=== PATIENT | female | born 1985 | race Caucasian/White ===

== ENCOUNTER → 2019-03-28 | Outpatient (CLI) | payer BC ==
[2019-03-28 14:25] LABS: BASO % 0.4 % (0.0-1.0); HEMATOCRIT 37.9 % (36.0-47.0); HEMOGLOBIN 13.1 g/dl (12.0-15.5); MEAN CORPUSCULAR HGB CONC 34.6 g/dl (32.0-36.5); MEAN CORPUSCULAR VOLUME 89.8 fl (80.0-96.0); MONO # 0.9 10^3/uL (0.0-0.8); MONO % 9.6 % (0.0-5.0); NEUTROPHILS % 67.8 % (36.0-66.0); PLATELET COUNT, AUTOMATED 220 10^3/uL (150-450); RED BLOOD COUNT 4.22 10^6/uL (4.00-5.40); WHITE BLOOD COUNT 8.9 10^3/uL (4.0-10.0)
[2019-03-28 15:20] LABS: HEPATITIS C VIRUS ABY INDEX < 0.0 INDEX (<0.8); HIV 1&2 SCREEN CENTAUR NEGATIVE (NEGATIVE); RUBELLA IgG QUALITATIVE IMMUNE (IMMUNE)
[2019-03-28 15:47] LABS: CHLAMYDIA DNA AMPLIFICATION NEGATIVE (NEGATIVE); GC DNA AMPLIFICATION NEGATIVE (NEGATIVE)
== END ==
LOC: M SMT 10:18
PROVIDERS: ATTEND Advanced Practice Midwife
DX: Z34.81 Encounter for supervision of other normal pregnancy, first trimester (principal); Z3A.00 Weeks of gestation of pregnancy not specified

== ENCOUNTER → 2019-04-09 | Outpatient (CLI) | payer BC | LOC: M SMT 10:32 | PROVIDERS: ATTEND Advanced Practice Midwife | DX: Z34.81 Encounter for supervision of other normal pregnancy, first trimester (principal); Z36.89 Encounter for other specified antenatal screening ==

== ENCOUNTER → 2019-04-23 | Outpatient (REF) | payer BC | LOC: M LAB REF 18:30 | PROVIDERS: ATTEND Advanced Practice Midwife | DX: Z34.81 Encounter for supervision of other normal pregnancy, first trimester (principal); Z3A.00 Weeks of gestation of pregnancy not specified ==

== ENCOUNTER → 2019-07-31 | Outpatient (CLI) | payer BC ==
[2019-07-31 18:30] LABS: MEAN CORPUSCULAR HEMOGLOBIN 31.9 pg (27.0-33.0); MEAN CORPUSCULAR HGB CONC 33.3 g/dl (32.0-36.5); MEAN CORPUSCULAR VOLUME 95.7 fl (80.0-96.0); PLATELET COUNT, AUTOMATED 178 10^3/uL (150-450); RED BLOOD COUNT 3.76 10^6/uL (4.00-5.40); WHITE BLOOD COUNT 12.7 10^3/uL (4.0-10.0)
== END ==
LOC: M SMT 13:06
PROVIDERS: ATTEND Advanced Practice Midwife
DX: Z36.89 Encounter for other specified antenatal screening (principal)

== ENCOUNTER → 2019-09-11 | Outpatient (CLI) | payer BC ==
--- NOTE | 2019-09-11 10:17 | REP ---
Clinical: Growth evaluation Comparison: None . Findings: Examination demonstrates a single live intrauterine in cephalic presentation. motion is identified by technologist. Placenta is noted anterior and grade I I without evidence for placenta previa or abruption. Amniotic fluid volume is normal. Cervix measures 4.2 cm in length and appears closed. No evidence for nuchal cord. Note is made of funic presentation of the umbilical cord lying upon the closed internal os. Gestational age by LMP 32 weeks 3 days with CHARLES 11/03/2019 . Gestational age by current measurements 33 weeks 5 days with CHARLES 10/25/2019 . FHR equals 146 beats per minute. BPD 8.2 cm 32 weeks 6 days HC 30.2 cm 33 weeks 4 days AC 32.0 cm 36 weeks 0 days FL 6.5 cm 33 weeks 4 days HL 5.6 cm 32 weeks 4 days HC/AC ratio 0.94 Estimated weight 2500 grams ( 93rd percentile). Amniotic fluid index: 10.8 cm (8.5 - 24.3) Umbilical cord SD ratio: 2.39 (2.30 - 3.30). Anatomical assessment demonstrates normal structures including cranium, choroid plexus, cavum, cerebellum/posterior fossa, facial features, lungs, four-chamber heart/left ventricular outflow tract, diaphragm, stomach, three-vessel cord, kidneys/bladder, spine, and lower extremities. Small bilateral hydroceles noted. Current examination demonstrates limited evaluation of the right cardiac ventricular outflow tract, cord insertion, and upper extremities due to age and crowding. Impression: 1. Single live intrauterine in cephalic presentation demonstrating appropriate interval growth. 2. The umbilical cord is seen presenting at the internal os without prolapse. 3. Small hydroceles noted in the scrotal sac may warrant evaluation for hernia. Electronically Signed by Fabricio Cuevas MD 09/11/2019 10:09 A
== END ==
LOC: M RAD 08:34
PROVIDERS: ATTEND Advanced Practice Midwife
DX: Z34.83 Encounter for supervision of other normal pregnancy, third trimester (principal); Z3A.33 33 weeks gestation of pregnancy

== ENCOUNTER → 2019-09-27 | Outpatient (REF) | payer BC | LOC: M SFHCWAGY 10:12 | PROVIDERS: ATTEND Specialist | DX: Z36.85 Encounter for antenatal screening for Streptococcus B (principal) ==

== ENCOUNTER → 2019-10-16 | Outpatient (CLI) | payer BC | LOC: M PLALAB 08:56 | PROVIDERS: ATTEND Advanced Practice Midwife | DX: Z36.89 Encounter for other specified antenatal screening (principal) ==

== ENCOUNTER → 2019-10-22 | Outpatient (CLI) | payer BC ==
[~2019-10-22] MED LIST: DOCU100C16 PO; IBUP80TA PO; PERCOCET PO; PRENTAB9 PO
--- NOTE | 2019-10-23 02:55 | REP ---
Clinical: Anatomical evaluation. Comparison: 10/22/2019 . Findings: Examination demonstrates a single live intrauterine in cephalic presentation. motion is identified by technologist. Placenta is noted anterior and grade I I without evidence for placenta previa or abruption. Amniotic fluid volume is normal. The cervix measures 3.6 cm, but the internal os appears marginally patent and fluid extends into the cervical canal. Multiple images demonstrate possible chorionic separation as well as the placental cord adjacent to the cervix and the head. Gestational age by LMP 38 weeks 2 days with CHARLES 11/03/2019 . Gestational age by current measurements 37 weeks 0 days with CHARLES 11/12/2019 . FHR equals 152 beats per minute. Estimated weight 3767 grams ( 77th percentile). Amniotic fluid index: 8.0 cm (7.3 - 23.6). Impression: 1. Single live intrauterine in cephalic presentation demonstrating appropriate interval growth. 2. Findings related to the cervix including marginally patent internal os with fluid extending into the endocervical canal and suggestions for funic cord.
== END ==
LOC: M WHC 08:29
PROVIDERS: ATTEND Advanced Practice Midwife
DX: Z36.89 Encounter for other specified antenatal screening (principal); Z3A.37 37 weeks gestation of pregnancy

== ENCOUNTER 2019-10-26 09:40 | Inpatient (IN) | payer BC ==
[~2019-10-26] VITALS: Ht 160 cm; Wt 82.1 kg
[2019-10-26] VITALS (8 sets, daily range): BP systolic 114–153; BP diastolic 61–87
[2019-10-26] MEDS ORDERED: PRENTAB9 PO (10:04)
[2019-10-26] MEDS ORDERED: LR 1,000 ML IV SCH ×2 (10:36→14:03)
[2019-10-26] MEDS ORDERED: LACTATED RINGER'S 1000 ML IV STA (10:36)
--- NOTE | 2019-10-26 10:54 | HPEPDOC ---
Obstetrical History & Physical General Date of Admission 10/26/2019 History of Present Illness Chief Complaint: Contractions, term, LOF, term Information Provided By: Patient Age: 34 : 2 Term: 0 Pre-term: 0 Abortions: 1 Livin Care Care: Good Care Dating Final EDC: Nov 03, 2019 Final EDC by: LMP EGA at Admission: 38 (+6) Antepartum Course Height (inches): 63 Pre- weight (lbs.): 145 Admission Weight (lbs.): 178 Past Medical History Past Obstetrical History : Past Obstetrical History: [employer] History: Theraputic Past Medical History Medical History Narcolepsy, migraine, moles, acne Surgical History: Hernia repair (umbilical) Family History Significant Family History: Cancer (breast), Hypertension, Lung disease Social History Marital Status: Family situation: Spouse/partner home Psychosocial History: No pertinent psych hx * Smoker: non-smoker Alcohol: Denies Drugs: denies Abuse Violence Screening Have you been hit/kicked/slapp: No Have you been sexually assault: No Imunizations Tdap status: current Allergies Coded Allergies: No Known Allergies (Unverified , 10/26/19) Medications Scheduled No.137/Iron/Folic Acd ( Vitamin Tablet) 1 Each Tablet, 1 TAB PO DAILY Physical Examination Physical Examination GENERAL: Alert and oriented times three. BREAST: . ABDOMEN: Gravid and non-tender to touch. FETUS: Is vertex (VTX) by sterile vaginal examination (SVE), fetus is vertex (VTX) by Sen. HEART RATE: Regular rate and rhythm. LUNGS: Clear to auscultation (CTA). EXTREMITIES: No edema. No clonus. Deep tendon reflexes (DTRs) + 2. Vital Signs/I&O Vital Signs Date Time Temp Pulse Resp B/P (MAP) Pulse Ox O2 Delivery O2 Flow Rate FiO2 10/26/19 10:02 98.1 70 18 134/87 (103) 97 Room Air Pertinent Laboratoy Data Blood Type: A+ RBC Antibody Screen: Negative HIV: Negative Hepatitis B: Negative Hepatitis C: Negative Rapid Plasma Reagin: Nonreactive Rubella: Immune Chlamydia/Gonorrhea: Negative Group B Streptococcus: Negative Quad Screen Test: Declined Glucose Tolerance Test: 113 Diag/Inter Therapy Panorama low risk male Anatomy Ultrasound Ultrasound Date: Jun 19, 2019 Placenta Location: Anterior Normal Anatomy: Yes (mild caliectasis) Placenta Previa: No Estimated Weight (grams): 436 Other Ultrasounds 03/28/19 dating [facility] 9w3d 09/2019 - possible funic cord presentation, cephalic 10/23/2019 growth sono, 77%. possible funic cord again seen Steroid Therapy Steroid Therapy: No Vaginal Examination Dilation: 1cm Effacement: 90% Station: -3 Cervical Consistency: Soft Cervical Position: Posterior Presentation: Cephalic presentation (small palpable loop of cord posterior) Assessment Heart Rate (FHR): 145 Variability: Moderate Accelerations: Positive Decelerations: Variable Tocometer Contractions: Yes Frequency: irregular, every 3-7 min. (5-6 minutes) Duration: greater than 60 seconds Strength: palpated as moderate Multi-drug resistant Organism: No history of MDRO Assessment/Plan Assessment Nannette is a 34-year-old (G)2 para (P)0-0-1-0 at 38+6 weeks by 9-week ultrasound. Presents to Labor and Delivery (L&D) with reports of SROM moderate clear fluid 0345 with onset irregular UC thereafter. Initially noted Cat II tracing with variable decels as low as 90's with UC and slow recovery to baseline. Reviewed pt status with Dr Campos who will come to evaluate due to sono showing possible funic cord and SVE with small palpable loop posterior of presen ting part. Plan Admit and orient per consult Dr Campos Informatics Pharmacist and consent. Diet: NPO. Group B Streptococcus (GBS) negative. Labs and intravenous (IV) per unit protocol. Counseled on Pitocin and induction of labor (IOL). Reviewed with patient and partner possible indication for based on Cat II tracing remote from delivery. After exam Cat I tracing is predominant Lactated Ringers (LR): Bolus 500 mL, then at 125 mL/hr. Will consult physician for mode of delivery Keeley Medrano CNM Oct 26, 2019 10:54
[2019-10-26 11:18] LABS: HEMATOCRIT 40.9 % (36.0-47.0); HEMOGLOBIN 13.8 g/dl (12.0-15.5); MEAN CORPUSCULAR HEMOGLOBIN 30.9 pg (27.0-33.0); MEAN CORPUSCULAR HGB CONC 33.7 g/dl (32.0-36.5); MEAN CORPUSCULAR VOLUME 91.5 fl (80.0-96.0); PLATELET COUNT, AUTOMATED 133 10^3/uL (150-450); RED BLOOD COUNT 4.47 10^6/uL (4.00-5.40); WHITE BLOOD COUNT 11.4 10^3/uL (4.0-10.0)
[2019-10-26] MEDS ORDERED: MORPHINE PRES-FREE INJ 10 MG/10 ML VIAL (J2274) As Ordered ONE (12:22)
[2019-10-26] MEDS ORDERED: OXYTOCIN INJ 10 UNITS/ML VIAL (J2590) As Ordered ONE ×2 (12:24→13:29)
[2019-10-26] MEDS ORDERED: dexameTHASONE 4 MG/ML 1ML VIAL (J1100) As Ordered ONE (12:28)
[2019-10-26] MEDS ORDERED: ONDANSETRON 4MG/2ML VIAL (J2405) As Ordered ONE (12:28)
[2019-10-26] MEDS ORDERED: PHENYLephrine HCL 500 MCG/5 ML (100MCG/ML) SYRINGE (J2370) As Ordered ONE ×2 (12:28→13:30)
[2019-10-26] MEDS ORDERED: METOCLOPRAMIDE INJ 10MG/2ML VIAL (J2765) As Ordered ONE (12:35)
[2019-10-26] MEDS ORDERED: BICITRA 30ML SOLN UDC PO ONE (13:00)
[2019-10-26] MEDS ORDERED: ceFAZolin SOD 2 GM in IV 1 EA IV ONE (13:00)
[2019-10-26] MEDS ORDERED: AZITHROMYCIN INJ 500 MG, VIAL MATE ADAPTER 1 EACH in D5W 250 ML IV ONE (13:00)
[2019-10-26] MEDS ORDERED: OXYTOCIN DRIP 30 UNITS in IV 1 EA IV SCH (14:03)
[2019-10-26] MEDS ORDERED: DOCU100C16 PO (14:14)
[2019-10-26] MEDS ORDERED: IBUP80TA PO (14:14)
[2019-10-26] MEDS ORDERED: PERCOCET PO (14:14)
[2019-10-26] MEDS ORDERED: RHOGAM 300 MCG (1500 IU) INJ (J2790) IM SCH (14:15)
[2019-10-26] MEDS ORDERED: ONDANSETRON 4 MG TAB (S0181) PO PRN (14:15)
[2019-10-26] MEDS ORDERED: MEASLES,MUMPS,RUBELLA VACCINE INJ (MMR-II) (90707) SC SCH (14:15)
[2019-10-26] MEDS ORDERED: PERCOCET 5MG/325MG TAB PO PRN ×2 (14:15)
[2019-10-26] MEDS ORDERED: PROMETHAZINE 25 MG TAB PO PRN (14:15)
[2019-10-26] MEDS ORDERED: ACETAMINOPHEN 500 MG TAB PO PRN (14:15)
[2019-10-26] MEDS ORDERED: OXYTOCIN 30 UNITS IN 0.9% NaCl 500ML IV BAG (J2590) As Ordered ONE (14:28)
[2019-10-26] MEDS ORDERED: KETOROLAC 30 MG/ML VIAL (J1885) IV PRN (14:30)
[2019-10-26] MEDS ORDERED: fentaNYL 100 MCG/2 ML INJECTION (J3010) IV PRN (14:30)
[2019-10-26] MEDS ORDERED: ONDANSETRON 4MG/2ML VIAL (J2405) IV PRN ×2 (14:30→15:00)
[2019-10-26] MEDS ORDERED: NALBUPHINE HCL 10 MG/ML AMP (J2300) IV PRN ×2 (14:30→15:00)
[2019-10-26] MEDS ORDERED: KETOROLAC 30 MG/ML VIAL (J1885) As Ordered ONE (14:35)
[2019-10-26] MEDS ORDERED: NALOXONE INJ 0.4 MG/1 ML VIAL (J2310) IV PRN ×2 (15:00)
[2019-10-26] MEDS ORDERED: METOCLOPRAMIDE INJ 10MG/2ML VIAL (J2765) IV PRN (15:00)
[2019-10-26] MEDS ORDERED: diphenhydrAMINE INJ 50MG/ML VIAL (J1200) IV PRN (15:00)
[2019-10-26] MEDS: KETOROLAC 30 MG/ML VIAL (J1885) IV SCH (20:34)
[2019-10-26] MEDS: DOCUSATE SODIUM 100 MG CAP PO SCH (20:34)
[2019-10-27 02:00] VITALS: BP 120/69
[2019-10-27] MEDS: KETOROLAC 30 MG/ML VIAL (J1885) IV SCH ×2 (03:20→08:54)
[2019-10-27 06:00] VITALS: BP 109/66
[2019-10-27 06:53] LABS: HEMATOCRIT 30.1 % (36.0-47.0); MEAN CORPUSCULAR HEMOGLOBIN 32.1 pg (27.0-33.0); MEAN CORPUSCULAR HGB CONC 34.9 g/dl (32.0-36.5); PLATELET COUNT, AUTOMATED 110 10^3/uL (150-450); RED BLOOD COUNT 3.27 10^6/uL (4.00-5.40); WHITE BLOOD COUNT 16.8 10^3/uL (4.0-10.0)
--- NOTE | 2019-10-27 06:56 | IPNPDOC ---
Text Note Date of Service The patient was seen on 10/27/19. NOTE Postop #1 patient denies complaints. tolerating oral fluid intake as well as food. nipples intact, establishing . abdominal dressing dry and intact. fundus firm at umbilicus after voiding; voiding without difficulty; pain controlled. plan for discharge tomorrow. CBC pending. Vital signs stable. YANNICK Patel agree with the above. VS,Fishbone, I+O VS, Fishbone, I+O Laboratory Tests 10/26/19 11:05 Vital Signs Date Time Temp Pulse Resp B/P (MAP) Pulse Ox O2 Delivery O2 Flow Rate FiO2 10/27/19 06:00 97.3 68 20 109/66 (80) 97 Room Air I&O- Last 24 Hours up to 6 AM 10/27/19 06:00 Intake Total 1505 ml Output Total 2225 ml Balance -720 ml Keeley Medrano CNM Oct 27, 2019 06:56
[2019-10-27 06:59] LABS: HEMOGLOBIN 10.5 g/dl (12.0-15.5)
[2019-10-27] MEDS: PRENATAL VITAMINS CHEWABLE TABLET PO SCH (08:53)
[2019-10-27] MEDS: DOCUSATE SODIUM 100 MG CAP PO SCH ×2 (08:53→21:19)
[2019-10-27] MEDS ORDERED: INFLUENZA QUADRIVALENT PF VACCINE 0.5ML SYRINGE (90686) IM ONE (09:00)
[2019-10-27 09:58] VITALS: BP 114/61
[2019-10-27 14:09] VITALS: BP 122/79
[2019-10-27] MEDS: IBUPROFEN 800 MG TAB PO SCH (17:39)
[2019-10-27 17:59] VITALS: BP 127/74
[2019-10-27 22:00] VITALS: BP 117/62
[2019-10-28] MEDS: IBUPROFEN 800 MG TAB PO SCH ×2 (01:45→09:00)
[2019-10-28 05:58] VITALS: BP 118/73
[2019-10-28] MEDS: PRENATAL VITAMINS CHEWABLE TABLET PO SCH (09:00)
[2019-10-28] MEDS: DOCUSATE SODIUM 100 MG CAP PO SCH (09:00)
== END 2019-10-28 12:05 | disposition home or self-care (01) | DRG 540 ==
LOC: M LDO 09:40 → M LDI 10:40 → M OBS 15:26
PROVIDERS: ADMIT Advanced Practice Midwife; ATTEND Obstetrics & Gynecology
PROC: 10D00Z1 Extraction of Products of Conception, Low, Open Approach (ICD-10-PCS; principal; 2019-10-26 13:00)
DX: O76 Abnormality in fetal heart rate and rhythm complicating labor and delivery (principal); Z3A.38 38 weeks gestation of pregnancy; O43.123 Velamentous insertion of umbilical cord, third trimester; Z37.0 Single live birth

== ENCOUNTER → 2021-07-31 | Outpatient (CLI) | payer BC | LOC: M LABSMTC 11:21 | PROVIDERS: ATTEND Family Medicine | DX: Z20.822 Contact with and (suspected) exposure to COVID-19 (principal) | CPT/HCPCS: C9803; U0003 ==

== ENCOUNTER → 2022-07-27 | Outpatient (REF) | payer BC | LOC: M SFHCWAGY 10:14 | PROVIDERS: ATTEND Obstetrics & Gynecology | DX: Z12.4 Encounter for screening for malignant neoplasm of cervix (principal) | CPT/HCPCS: 87624; G0123 ==

== ENCOUNTER → 2023-01-25 | Outpatient (CLI) | payer BC ==
[~2023-01-25] MED LIST changes: +ISOVUE-370 76% 100ML VIAL As Ordered ONE
== END ==
LOC: M RADPRO 11:43
PROVIDERS: ATTEND Obstetrics & Gynecology
DX: N97.9 Female infertility, unspecified (principal); Z31.9 Encounter for procreative management, unspecified
CPT/HCPCS: 58340; 74740; Q9967

== ENCOUNTER 2023-03-23 10:04 | Day surgery (SDC) | payer BC ==
[~2023-03-23] VITALS: Ht 160 cm; Wt 72.1 kg
[~2023-03-23 10:04] MED LIST changes: -ISOVUE-370 76% 100ML VIAL As Ordered ONE; +KETOROLAC 60MG 2ML VIAL As Ordered ONE; +LIDOCAINE 2% 100MG/5ML SDV (FOR ANES.) As Ordered ONE; +MIDAZOLAM INJ 2MG/2ML VIAL As Ordered ONE; +ONDANSETRON 4MG 2ML VIAL As Ordered ONE; +ROCURONIUM BROMIDE 50MG/5ML VIAL As Ordered ONE; +SUGAMMADEX SODIUM 500 MG/5 ML VIAL (BRIDION) As Ordered ONE; +fentaNYL 100 MCG/2 ML INJECTION As Ordered ONE; +propofoL 200 MG/20 ML VIAL As Ordered ONE
[2023-03-23 10:42] LABS: HEMATOCRIT 41.4 % (36.0-47.0); HEMOGLOBIN 14.1 g/dl (12.0-15.5); MEAN CORPUSCULAR HGB CONC 34.1 g/dl (32.0-36.5); PLATELET COUNT, AUTOMATED 221 10^3/uL (150-450); RED BLOOD COUNT 4.55 10^6/uL (4.00-5.40); WHITE BLOOD COUNT 6.3 10^3/uL (4.0-10.0)
[2023-03-23] MEDS ORDERED: METHYLENE BLUE 0.5% (5MG/ML) 10 ML AMP (PROVAYBLUE) As Ordered ONE (10:59)
[2023-03-23] MEDS ORDERED: LR 1,000 ML IV SCH (11:10)
[2023-03-23] MEDS ORDERED: fentaNYL 100 MCG/2 ML INJECTION As Ordered ONE (11:27)
[2023-03-23] MEDS ORDERED: ACETAMINOPHEN 1000MG 100ML IV BAG As Ordered ONE (11:28)
[2023-03-23] MEDS ORDERED: ONDANSETRON 4MG 2ML VIAL IV PRN (12:15)
[2023-03-23] MEDS ORDERED: fentaNYL 100 MCG/2 ML INJECTION IV PRN (12:15)
[2023-03-23] MEDS ORDERED: HYDROMORPHONE HCL 0.5 MG/ 0.5 ML SYRINGE IV PRN (12:15)
[2023-03-23] MEDS: oxyCODONE 5MG TAB PO PRN ×2 (12:52→13:29)
[2023-03-23] MEDS ORDERED: IBUP80TA PO (12:57)
[2023-03-23] MEDS ORDERED: OXYC1TAB23 PO (13:00)
[2023-03-23] MEDS ORDERED: COLA100C5 PO (13:01)
[2023-03-23 13:50] VITALS: BP 118/63; TEMP 98; O2SAT 97
== END 2023-03-23 14:40 | disposition home or self-care (01) ==
LOC: M SDC 10:04
PROVIDERS: ATTEND Obstetrics & Gynecology
DX: N80.399 Endometriosis of the pelvic peritoneum, other specified sites, unspecified depth (principal); N97.1 Female infertility of tubal origin
CPT/HCPCS: 36415; 49320; 58350; 81025; 85027; 86850; 86900; 86901; J0131; J1100; J1885; J2250; J2405; J3010; Q9968; S0020

== ENCOUNTER → 2023-08-10 | Outpatient (CLI) | payer BC ==
[~2023-08-10] MED LIST changes: +COLA100C5 PO; -KETOROLAC 60MG 2ML VIAL As Ordered ONE; -LIDOCAINE 2% 100MG/5ML SDV (FOR ANES.) As Ordered ONE; -MIDAZOLAM INJ 2MG/2ML VIAL As Ordered ONE; -ONDANSETRON 4MG 2ML VIAL As Ordered ONE; +OXYC1TAB23 PO; -ROCURONIUM BROMIDE 50MG/5ML VIAL As Ordered ONE; -SUGAMMADEX SODIUM 500 MG/5 ML VIAL (BRIDION) As Ordered ONE; -fentaNYL 100 MCG/2 ML INJECTION As Ordered ONE; -propofoL 200 MG/20 ML VIAL As Ordered ONE
[2023-08-10 08:52] LABS: HCG, SERUM QUANTITATIVE < 2.6 MIU/ML (<4.2)
[2023-08-10 08:56] LABS: FOLLICLE STIMULATING HORMONE 7.9 mIU/ML
[2023-08-10 08:57] LABS: LUTEINIZING HORMONE 8.5 mIU/ML
[2023-08-10 08:58] LABS: ESTRADIOL 49.1 PG/ML
[2023-08-10 08:59] LABS: PROGESTERONE 0.49 NG/ML
== END ==
LOC: M RAD 07:12
PROVIDERS: ATTEND Obstetrics & Gynecology Reproductive Endocrinology
DX: Z31.83 Encounter for assisted reproductive fertility procedure cycle (principal)

== ENCOUNTER → 2023-08-15 | Outpatient (CLI) | payer BC | LOC: M WHC 07:07 | PROVIDERS: ATTEND Obstetrics & Gynecology Reproductive Endocrinology | DX: Z31.83 Encounter for assisted reproductive fertility procedure cycle (principal) ==

== ENCOUNTER → 2023-08-15 | Outpatient (CLI) | payer BC ==
[2023-08-15 09:16] LABS: LUTEINIZING HORMONE 6.7 mIU/ML
[2023-08-15 09:17] LABS: ESTRADIOL 182.2 PG/ML; PROGESTERONE 0.44 NG/ML
== END ==
LOC: M LAB 08:15
PROVIDERS: ATTEND Obstetrics & Gynecology Reproductive Endocrinology
DX: Z31.83 Encounter for assisted reproductive fertility procedure cycle (principal)

== ENCOUNTER → 2023-08-19 | Outpatient (CLI) | payer BC | LOC: M WHC 07:38 | PROVIDERS: ATTEND Obstetrics & Gynecology Reproductive Endocrinology | DX: Z31.83 Encounter for assisted reproductive fertility procedure cycle (principal) ==

== ENCOUNTER → 2023-08-19 | Outpatient (CLI) | payer BC ==
[2023-08-19 08:06] LABS: LUTEINIZING HORMONE 10.5 mIU/ML
[2023-08-19 08:07] LABS: PROGESTERONE 1.24 NG/ML
[2023-08-19 08:08] LABS: ESTRADIOL 1028.5 PG/ML
== END ==
LOC: M LAB 07:04
PROVIDERS: ATTEND Obstetrics & Gynecology Reproductive Endocrinology
DX: Z31.83 Encounter for assisted reproductive fertility procedure cycle (principal)

== ENCOUNTER → 2023-09-15 | Outpatient (CLI) | payer BC ==
[2023-09-15 08:50] LABS: ESTRADIOL 185.2 PG/ML; LUTEINIZING HORMONE 6.2 mIU/ML
[2023-09-15 08:51] LABS: PROGESTERONE < 0.21 NG/ML
== END ==
LOC: M RAD 06:43
PROVIDERS: ATTEND Obstetrics & Gynecology Reproductive Endocrinology
DX: Z31.83 Encounter for assisted reproductive fertility procedure cycle (principal)

== ENCOUNTER → 2023-09-26 | Outpatient (CLI) | payer BC ==
[2023-09-26 10:19] LABS: ESTRADIOL 160.4 PG/ML
[2023-09-26 10:20] LABS: PROGESTERONE 46.59 NG/ML
== END ==
LOC: M LAB 07:50
PROVIDERS: ATTEND Obstetrics & Gynecology Reproductive Endocrinology
DX: Z31.49 Encounter for other procreative investigation and testing (principal)

== ENCOUNTER → 2023-09-30 | Outpatient (CLI) | payer BC ==
[2023-09-30 08:14] LABS: HCG, SERUM QUANTITATIVE < 2.6 MIU/ML (<4.2)
[2023-09-30 08:18] LABS: PROGESTERONE 32.81 NG/ML
== END ==
LOC: M LAB 07:06
PROVIDERS: ATTEND Obstetrics & Gynecology Reproductive Endocrinology
DX: Z32.00 Encounter for pregnancy test, result unknown (principal)

== ENCOUNTER → 2023-10-07 | Outpatient (CLI) | payer BC ==
[2023-10-07 08:55] LABS: HCG, SERUM QUANTITATIVE < 2.6 MIU/ML (<4.2)
[2023-10-07 08:59] LABS: PROGESTERONE 3.22 NG/ML
[2023-10-07 09:00] LABS: FOLLICLE STIMULATING HORMONE 7.3 mIU/ML; LUTEINIZING HORMONE 5.6 mIU/ML; THYROID STIMULATING HORMONE 1.103 uIU/ML (0.55-4.78)
[2023-10-07 09:01] LABS: ESTRADIOL 128.7 PG/ML
== END ==
LOC: M RAD 07:36
PROVIDERS: ATTEND Obstetrics & Gynecology Reproductive Endocrinology
DX: Z31.83 Encounter for assisted reproductive fertility procedure cycle (principal); N83.01 Follicular cyst of right ovary; N83.02 Follicular cyst of left ovary

== ENCOUNTER → 2023-11-03 | Outpatient (CLI) | payer BC ==
[2023-11-03 09:16] LABS: HCG, SERUM QUANTITATIVE < 2.6 MIU/ML (<4.2)
[2023-11-03 09:20] LABS: ESTRADIOL 104.3 PG/ML; FOLLICLE STIMULATING HORMONE 9.8 mIU/ML; THYROID STIMULATING HORMONE 1.915 uIU/ML (0.55-4.78)
[2023-11-03 09:21] LABS: LUTEINIZING HORMONE 5.9 mIU/ML; PROGESTERONE 0.21 NG/ML
== END ==
LOC: M RAD 07:40
PROVIDERS: ATTEND Obstetrics & Gynecology Reproductive Endocrinology
DX: Z31.83 Encounter for assisted reproductive fertility procedure cycle (principal)

== ENCOUNTER → 2023-11-21 | Outpatient (CLI) | payer BC ==
[2023-11-21 10:09] LABS: HCG, SERUM QUANTITATIVE < 2.6 MIU/ML (<4.2)
[2023-11-21 10:13] LABS: FOLLICLE STIMULATING HORMONE 7.2 mIU/ML; LUTEINIZING HORMONE 12.9 mIU/ML; PROGESTERONE 0.91 NG/ML
[2023-11-21 10:14] LABS: ESTRADIOL 238.6 PG/ML; THYROID STIMULATING HORMONE 1.656 uIU/ML (0.55-4.78)
== END ==
LOC: M RAD 08:22
PROVIDERS: ATTEND Obstetrics & Gynecology Reproductive Endocrinology
DX: Z31.83 Encounter for assisted reproductive fertility procedure cycle (principal); E28.9 Ovarian dysfunction, unspecified

== ENCOUNTER → 2023-12-05 | Outpatient (CLI) | payer BC ==
[2023-12-05 11:08] LABS: HCG, SERUM QUANTITATIVE < 2.6 MIU/ML (<4.2)
[2023-12-05 11:12] LABS: THYROID STIMULATING HORMONE 0.838 uIU/ML (0.55-4.78)
[2023-12-05 11:13] LABS: ESTRADIOL 87.5 PG/ML; FOLLICLE STIMULATING HORMONE 6.4 mIU/ML; LUTEINIZING HORMONE 3.8 mIU/ML
[2023-12-05 11:14] LABS: PROGESTERONE < 0.21 NG/ML
== END ==
LOC: M RAD 09:43
PROVIDERS: ATTEND Obstetrics & Gynecology Reproductive Endocrinology
DX: Z31.83 Encounter for assisted reproductive fertility procedure cycle (principal)

== ENCOUNTER → 2023-12-09 | Outpatient (CLI) | payer BC ==
[2023-12-09 09:32] LABS: ESTRADIOL 142.7 PG/ML; LUTEINIZING HORMONE 10.5 mIU/ML
[2023-12-09 09:33] LABS: PROGESTERONE < 0.21 NG/ML
== END ==
LOC: M LAB 08:13
PROVIDERS: ATTEND Obstetrics & Gynecology Reproductive Endocrinology
DX: Z31.83 Encounter for assisted reproductive fertility procedure cycle (principal)

== ENCOUNTER → 2023-12-09 | Outpatient (CLI) | payer BC | LOC: M WHC 07:14 | PROVIDERS: ATTEND Obstetrics & Gynecology Reproductive Endocrinology | DX: Z31.83 Encounter for assisted reproductive fertility procedure cycle (principal) ==

== ENCOUNTER → 2023-12-12 | Outpatient (CLI) | payer BC | LOC: M WHC 07:08 | PROVIDERS: ATTEND Obstetrics & Gynecology Reproductive Endocrinology | DX: Z31.83 Encounter for assisted reproductive fertility procedure cycle (principal) ==

== ENCOUNTER → 2023-12-12 | Outpatient (CLI) | payer BC ==
[2023-12-12 09:32] LABS: PROGESTERONE < 0.21 NG/ML
[2023-12-12 09:33] LABS: LUTEINIZING HORMONE 31.9 mIU/ML
[2023-12-12 10:00] LABS: ESTRADIOL 3876.7 PG/ML
== END ==
LOC: M LAB 08:04
PROVIDERS: ATTEND Obstetrics & Gynecology Reproductive Endocrinology
DX: Z31.83 Encounter for assisted reproductive fertility procedure cycle (principal)

== ENCOUNTER → 2023-12-21 | Outpatient (CLI) | payer BC ==
[2023-12-21 09:00] LABS: ESTRADIOL 1275.5 PG/ML
[2023-12-21 09:01] LABS: PROGESTERONE 25.05 NG/ML
== END ==
LOC: M LAB 07:42
PROVIDERS: ATTEND Obstetrics & Gynecology Reproductive Endocrinology
DX: Z31.49 Encounter for other procreative investigation and testing (principal)

== ENCOUNTER → 2023-12-26 | Outpatient (CLI) | payer BC ==
[2023-12-26 09:15] LABS: HCG, SERUM QUANTITATIVE < 2.6 MIU/ML (<4.2)
[2023-12-26 09:19] LABS: PROGESTERONE 30.12 NG/ML
== END ==
LOC: M LAB 08:06
PROVIDERS: ATTEND Obstetrics & Gynecology Reproductive Endocrinology
DX: Z32.00 Encounter for pregnancy test, result unknown (principal)

== ENCOUNTER → 2024-01-03 | Outpatient (CLI) | payer BC | LOC: M WHC 07:07 | PROVIDERS: ATTEND Obstetrics & Gynecology Reproductive Endocrinology | DX: Z31.83 Encounter for assisted reproductive fertility procedure cycle (principal) ==

== ENCOUNTER → 2024-01-03 | Outpatient (CLI) | payer BC ==
[2024-01-03 08:52] LABS: HCG, SERUM QUANTITATIVE < 2.6 MIU/ML (<4.2)
[2024-01-03 08:56] LABS: LUTEINIZING HORMONE 6.7 mIU/ML; THYROID STIMULATING HORMONE 0.643 uIU/ML (0.55-4.78)
[2024-01-03 08:57] LABS: ESTRADIOL 43.1 PG/ML; FOLLICLE STIMULATING HORMONE 7.1 mIU/ML; PROGESTERONE 3.28 NG/ML
== END ==
LOC: M LAB 08:03
PROVIDERS: ATTEND Obstetrics & Gynecology Reproductive Endocrinology
DX: Z31.83 Encounter for assisted reproductive fertility procedure cycle (principal)

== ENCOUNTER → 2024-01-10 | Outpatient (CLI) | payer BC ==
[2024-01-10 10:26] LABS: LUTEINIZING HORMONE 4.8 mIU/ML
[2024-01-10 10:27] LABS: ESTRADIOL 1953.2 PG/ML
[2024-01-10 10:28] LABS: PROGESTERONE 1.6 NG/ML
== END ==
LOC: M RAD 08:38
PROVIDERS: ATTEND Obstetrics & Gynecology Reproductive Endocrinology
DX: Z31.83 Encounter for assisted reproductive fertility procedure cycle (principal)

== ENCOUNTER → 2024-01-11 | Outpatient (CLI) | payer BC | LOC: M LAB 07:50 | PROVIDERS: ATTEND Obstetrics & Gynecology Reproductive Endocrinology | DX: Z31.83 Encounter for assisted reproductive fertility procedure cycle (principal) ==

== ENCOUNTER → 2024-01-13 | Outpatient (CLI) | payer BC ==
[2024-01-13 08:25] LABS: ESTRADIOL 775.1 PG/ML; LUTEINIZING HORMONE 1.3 mIU/ML; PROGESTERONE 1.62 NG/ML
== END ==
LOC: M RAD 07:07
PROVIDERS: ATTEND Obstetrics & Gynecology Reproductive Endocrinology
DX: Z31.83 Encounter for assisted reproductive fertility procedure cycle (principal); N83.01 Follicular cyst of right ovary; N83.02 Follicular cyst of left ovary

== ENCOUNTER → 2024-01-23 | Outpatient (CLI) | payer BC ==
[2024-01-23 11:38] LABS: ESTRADIOL 1227.9 PG/ML
[2024-01-23 11:39] LABS: PROGESTERONE 21.11 NG/ML
== END ==
LOC: M LAB 07:35
PROVIDERS: ATTEND Obstetrics & Gynecology Reproductive Endocrinology
DX: Z31.49 Encounter for other procreative investigation and testing (principal)

== ENCOUNTER → 2024-01-27 | Outpatient (CLI) | payer BC ==
[2024-01-27 09:42] LABS: HCG, SERUM QUANTITATIVE < 2.6 MIU/ML (<4.2)
[2024-01-27 09:46] LABS: PROGESTERONE 27.53 NG/ML
== END ==
LOC: M LAB 08:24
PROVIDERS: ATTEND Obstetrics & Gynecology Reproductive Endocrinology
DX: Z32.00 Encounter for pregnancy test, result unknown (principal)

== ENCOUNTER → 2024-05-22 | Outpatient (CLI) | payer BC ==
[2024-05-22 10:38] LABS: LUTEINIZING HORMONE 1.3 mIU/ML; PROGESTERONE 4.49 NG/ML
== END ==
LOC: M LAB 09:18
PROVIDERS: ATTEND Obstetrics & Gynecology Reproductive Endocrinology
DX: Z31.83 Encounter for assisted reproductive fertility procedure cycle (principal)

== ENCOUNTER → 2024-06-19 | Outpatient (CLI) | payer BC | LOC: M LAB 09:36 | PROVIDERS: ATTEND Obstetrics & Gynecology Reproductive Endocrinology | DX: Z31.83 Encounter for assisted reproductive fertility procedure cycle (principal) ==

== ENCOUNTER → 2024-06-20 | Outpatient (CLI) | payer BC | LOC: M LAB 09:35 | PROVIDERS: ATTEND Obstetrics & Gynecology Reproductive Endocrinology | DX: Z13.29 Encounter for screening for other suspected endocrine disorder (principal) ==

== ENCOUNTER → 2024-06-21 | Outpatient (CLI) | payer BC | LOC: M LAB 09:36 | PROVIDERS: ATTEND Obstetrics & Gynecology Reproductive Endocrinology | DX: Z31.83 Encounter for assisted reproductive fertility procedure cycle (principal) ==

== ENCOUNTER → 2024-06-22 | Outpatient (CLI) | payer BC ==
[2024-06-22 10:03] LABS: HEMATOCRIT 41.4 % (36.0-47.0); HEMOGLOBIN 14.4 g/dl (12.0-15.5); MEAN CORPUSCULAR HEMOGLOBIN 30.9 pg (27.0-33.0); MEAN CORPUSCULAR HGB CONC 34.8 g/dl (32.0-36.5); MEAN CORPUSCULAR VOLUME 88.8 fl (80.0-96.0); PLATELET COUNT, AUTOMATED 222 10^3/uL (150-450); RED BLOOD COUNT 4.66 10^6/uL (4.00-5.40); WHITE BLOOD COUNT 28.8 10^3/uL (4.0-10.0)
[2024-06-22 10:29] LABS: ESTRADIOL 177.7 PG/ML
[2024-06-22 10:49] LABS: PROGESTERONE 62.8 NG/ML
== END ==
LOC: M LAB 09:34
PROVIDERS: ATTEND Obstetrics & Gynecology Reproductive Endocrinology
DX: Z31.83 Encounter for assisted reproductive fertility procedure cycle (principal)

== ENCOUNTER → 2024-06-28 | Outpatient (CLI) | payer BC ==
[2024-06-28 11:10] LABS: HCG, SERUM QUANTITATIVE 427.4 MIU/ML (<4.2)
[2024-06-28 11:37] LABS: PROGESTERONE 58.69 NG/ML
== END ==
LOC: M LAB 09:52
PROVIDERS: ATTEND Obstetrics & Gynecology Reproductive Endocrinology
DX: Z32.00 Encounter for pregnancy test, result unknown (principal)

== ENCOUNTER → 2024-07-02 | Outpatient (CLI) | payer BC ==
[2024-07-02 10:24] LABS: HEMATOCRIT 39.3 % (36.0-47.0); HEMOGLOBIN 13.6 g/dl (12.0-15.5); MEAN CORPUSCULAR HEMOGLOBIN 30.8 pg (27.0-33.0); MEAN CORPUSCULAR HGB CONC 34.6 g/dl (32.0-36.5); MEAN CORPUSCULAR VOLUME 88.9 fl (80.0-96.0); PLATELET COUNT, AUTOMATED 193 10^3/uL (150-450); RED BLOOD COUNT 4.42 10^6/uL (4.00-5.40); WHITE BLOOD COUNT 23.2 10^3/uL (4.0-10.0)
[2024-07-02 10:44] LABS: THYROID STIMULATING HORMONE 1.794 uIU/ML (0.55-4.78)
[2024-07-02 10:46] LABS: PROGESTERONE 51.39 NG/ML
[2024-07-02 11:00] LABS: HCG, SERUM QUANTITATIVE 1960.6 MIU/ML (<4.2)
== END ==
LOC: M LAB 09:35
PROVIDERS: ATTEND Obstetrics & Gynecology Reproductive Endocrinology
DX: Z32.01 Encounter for pregnancy test, result positive (principal)

== ENCOUNTER → 2024-10-23 | Outpatient (CLI) | payer BC | LOC: M RAD 08:57 | PROVIDERS: ATTEND Obstetrics & Gynecology | DX: O34.211 Maternal care for low transverse scar from previous cesarean delivery (principal); Z3A.20 20 weeks gestation of pregnancy ==

== ENCOUNTER → 2024-11-30 | Outpatient (CLI) | payer BC ==
[2024-11-30 17:08] LABS: MEAN CORPUSCULAR HEMOGLOBIN 30.8 pg (27.0-33.0); MEAN CORPUSCULAR HGB CONC 34.3 g/dl (32.0-36.5); MEAN CORPUSCULAR VOLUME 89.7 fl (80.0-96.0); PLATELET COUNT, AUTOMATED 195 10^3/uL (150-450); WHITE BLOOD COUNT 11.5 10^3/uL (4.0-10.0)
[2024-11-30 17:33] LABS: GLUCOSE CHALLENGE TEST 1 HOUR 117 MG/DL (LESS THAN 140)
[2024-11-30 18:04] LABS: HIV 1&2 SCREEN NEGATIVE (NEGATIVE)
[2024-11-30 18:11] LABS: HEPATITIS C VIRUS ABY INDEX 0.12 INDEX (<0.8)
[2024-11-30 18:34] LABS: GC DNA AMPLIFICATION NEGATIVE (NEGATIVE)
== END ==
LOC: M LAB 15:33
PROVIDERS: ATTEND Nurse Practitioner Family
DX: Z34.82 Encounter for supervision of other normal pregnancy, second trimester (principal); Z3A.00 Weeks of gestation of pregnancy not specified

== ENCOUNTER → 2025-02-06 | Outpatient (CLI) | payer BC | LOC: M RAD 10:00 | PROVIDERS: ATTEND Nurse Practitioner Family | DX: O09.522 Supervision of elderly multigravida, second trimester (principal); O32.1XX0 Maternal care for breech presentation, not applicable or unspecified; Z3A.36 36 weeks gestation of pregnancy ==